=== PATIENT | male | born 1950 | race Caucasian/White ===

== ENCOUNTER 2016-10-22 08:09 | Outpatient (CLI) | payer MEDICARE ==
[2016-10-22 12:37] LABS: Hemoglobin A1c 5.7 % (4.0-6.0)
== END 2016-10-22 08:10 | disposition home or self-care (01) ==
LOC: NAVSJIPCSP 08:09
PROVIDERS: ATTEND Internal Medicine
DX: E78.5 Hyperlipidemia, unspecified (principal); E11.51 Type 2 diabetes mellitus with diabetic peripheral angiopathy without gangrene; Z79.899 Other long term (current) drug therapy
CPT/HCPCS: 36415; 80061; 83036

== ENCOUNTER 2017-02-13 09:37 | Outpatient (CLI) | payer MEDICARE ==
[2017-02-13 14:36] LABS: Cardiac Risk 3.3 (Less than 4.5)
[2017-02-13 14:41] LABS: Hemoglobin A1c 5.7 % (4.0-6.0)
== END 2017-02-13 09:38 | disposition home or self-care (01) ==
LOC: NAVSJIPCSP 09:37
PROVIDERS: ATTEND Internal Medicine
DX: I11.9 Hypertensive heart disease without heart failure (principal); E78.5 Hyperlipidemia, unspecified; E11.51 Type 2 diabetes mellitus with diabetic peripheral angiopathy without gangrene; Z79.899 Other long term (current) drug therapy
CPT/HCPCS: 36415; 80061; 83036

== ENCOUNTER 2017-04-25 14:11 | Outpatient (CLI) | payer MEDICARE ==
[2017-04-25 14:40] LABS: Anion Gap 13 mmol/L (10-20); BUN (Urea Nitrogen) 36 mg/dL (8.4-25.7); Calc. Creatinine Clearance 0 mL/min (70-130); Carbon Dioxide 31 mmol/L (23-31); Chloride 97 mmol/L (98-107); Estimated GFR-MDRD 43; Glucose 164 mg/dL (80-115); Potassium 4.2 mmol/L (3.5-5.1); Sodium 137 mmol/L (136-145)
== END 2017-04-25 14:12 | disposition home or self-care (01) ==
LOC: NAVSJIPCSP 14:11
DX: R60.0 Localized edema (principal)
CPT/HCPCS: 36415; 80048

== ENCOUNTER 2017-05-27 11:29 | Outpatient (CLI) | payer MEDICARE, OTHER ==
--- NOTE | 2017-05-27 16:13 | RAD ---
LEFT HEEL TWO VIEWS 05/27/17 HISTORY: 66-year-old male with left heel pain without recent injury. Calcaneal, Achilles and plantar minimal enthesophytic changes are noted. No evidence for acute fract ure or dislocation. IMPRESSION: Enthesophytic and degenerative changes without fracture or dislocation. POS: OFF
== END 2017-05-27 11:30 | disposition home or self-care (01) ==
LOC: NAV RAD 11:29
PROVIDERS: ATTEND Internal Medicine
DX: E11.51 Type 2 diabetes mellitus with diabetic peripheral angiopathy without gangrene (principal); M79.672 Pain in left foot

== ENCOUNTER 2017-05-30 08:32 | Emergency (ER) | payer MEDICARE ==
[2017-05-30] MEDS ORDERED: Sodium Chloride 0.9% 500 ML ONE (09:54)
[2017-05-30 10:07] LABS: CKMB 2.3 ng/mL (0-6.6); Troponin I 0.029 ng/mL (< 0.028)
[2017-05-30 10:09] LABS: Actual Bicarbonate (HCO3a) 31.1 mEq/L (22-26); Base Excess (BEa) 5.3 mEq/L (0 (+/-) 2.5); pH, Arterial 7.39 (7.35-7.45)
[2017-05-30 10:10] LABS: Puncture Site RRA
[2017-05-30 10:11] LABS: ALT (SGPT) 1429 U/L (8-55); AST (SGOT) 3020 U/L (5-34); Albumin 3.5 g/dL (3.4-4.8); Alkaline Phosphatase 76 U/L (40-150); Anion Gap 16 mmol/L (10-20); BUN (Urea Nitrogen) 53 mg/dL (8.4-25.7); Bilirubin, Total 1.1 mg/dL (0.2-1.2); CK (CPK) 57 U/L (30-200); Calc. Creatinine Clearance 0 mL/min (70-130); Calcium 9.5 mg/dL (7.8-10.44); Carbon Dioxide 28 mmol/L (23-31); Chloride 98 mmol/L (98-107); Estimated GFR-MDRD 42; Globulin 3.5 g/dL (2.4-3.5); Glucose 119 mg/dL (80-115); Potassium 4.8 mmol/L (3.5-5.1); Sodium 137 mmol/L (136-145)
--- NOTE | 2017-05-30 10:28 | RAD ---
TWO VIEWS CHEST 05/30/17 PROVIDED CLINICAL HISTORY: Dyspnea. FINDINGS: Comparison 06/08/15. The cardiac silhouette appears enlarged. Median sternotomy changes and vascular calcification are ag ain seen. Prominence of the pulmonary vasculature and pulmonary interstitium appears similar to the prior study. Small bilateral pleural effusions are seen. 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 IMPRESSION: Findings suggesting congestive failure with associated pleural effusions. Followup is recommended. POS: [id number]
[2017-05-30 10:30] LABS: #Lymphocytes 0.8 thou/uL (1.20-3.40); #Monocytes 0.7 thou/uL (0.11-0.59); #Neutrophils 7.2 thou/uL (1.40-6.50); %Basophils 0.3 % (0.0-1.0); %Eosinophils 0.1 % (0.0-10.0); %Lymphocytes 8.7 % (21.0-51.0); %Neutrophils 82.9 % (42.0-75.0); Hemoglobin 10.3 g/dL (14.0-18.0); Hypochromia SLIGHT = 6-15 cells (100X) (0-5/hpf); MDiff Complete? YES; Mean Corpuscular HGB CONC 29.8 g/dL (32.0-36.0); Mean Corpuscular Hemoglobin 28.6 pg (27.0-31.0); Mean Corpuscular Volume 95.9 fl (80.0-94.0); Mean Platelet Volume 8.2 fL (7.4-10.4); PLT Morphology Comment Appears Adequate; Platelet Count 199 thou/uL (130-400); White Blood Cell (WBC) Count 8.7 thou/uL (4.8-10.8)
[2017-05-30] MEDS ORDERED: Furosemide 20 MG/2 ML VIAL ONE (11:49)
[2017-05-30 12:15] LABS: Bilirubin Negative (Negative); Blood, Urine Trace (Negative); Clarity Clear (Clear); Glucose, Urine (Dipstick) Negative (Negative); Leukocyte Negative (Negative); Nitrite Negative (Negative); Protein, Urine (Dipstick) 30 mg/dL (Neg-Trace); pH, Urine 5.5 (5.0-9.0)
[2017-05-30 13:03] LABS: Bacteria/HPF Rare-Few HPF (None Seen); Hyaline Casts/LPF 0-3 HYALINE CAST LPF (0-3 Hyaline); RBC/HPF 0-3 HPF (0-3); Squamous Epithelial 0-3 HPF (0-3); WBC/HPF 0-3 HPF (0-3)
== END 2017-05-30 13:18 | disposition home or self-care (01) ==
LOC: NAV ERS 08:32
DX: I11.0 Hypertensive heart disease with heart failure (principal); I50.9 Heart failure, unspecified; J44.1 Chronic obstructive pulmonary disease with (acute) exacerbation; K72.90 Hepatic failure, unspecified without coma; I25.9 Chronic ischemic heart disease, unspecified; N28.9 Disorder of kidney and ureter, unspecified; D64.9 Anemia, unspecified; R09.02 Hypoxemia; I25.10 Atherosclerotic heart disease of native coronary artery without angina pectoris; E78.5 Hyperlipidemia, unspecified; E11.9 Type 2 diabetes mellitus without complications; Z87.891 Personal history of nicotine dependence; Z79.84 Long term (current) use of oral hypoglycemic drugs; Z79.82 Long term (current) use of aspirin; Z79.899 Other long term (current) drug therapy
CPT/HCPCS: 71020; 80053; 81003; 81015; 82553; 82805; 83880; 84484; 85025; 93005; 96361; 96374; J1940; J7050; J7620